=== PATIENT | female | born 1980 | race Two or more races ===

== ENCOUNTER 2021-05-20 21:07 | Emergency (ER) | payer OTHER ==
[~2021-05-20] VITALS: Ht 154.9 cm; Wt 89.8 kg
[2021-05-20] MEDS ORDERED: NEXIUM5 MG (21:45)
[2021-05-20] MEDS ORDERED: ADVIL200 M1 (21:45)
[2021-05-20] MEDS ORDERED: GAS-X125 M1 (21:46)
[2021-05-20] MEDS ORDERED: LEVSIN/SL0.125 MG (21:46)
[2021-05-20] MEDS ORDERED: DICY20TA (21:46)
[2021-05-20] MEDS ORDERED: PEPTO-BISM262 MG/15 (21:46)
[2021-05-20] MEDS ORDERED: NASAL MIST126 ML (21:47)
[2021-05-20] MEDS ORDERED: PROTONIX40 MG (21:47)
[2021-05-21] MEDS ORDERED: PEPCID AC20 MG PO (05:00)
[2021-05-21] MEDS ORDERED: PROTONIX20 MG PO (05:00)
[2021-05-21] MEDS ORDERED: CARAFATE1 GM PO (05:00)
== END 2021-05-21 05:18 | disposition home or self-care (01) ==
LOC: ER 21:07
DX: K29.70 Gastritis, unspecified, without bleeding (principal)